=== PATIENT | female | born 1980 | race Caucasian/White ===

== ENCOUNTER 2018-10-22 08:39 | Emergency (ER) | payer SELFPAY ==
[2018-10-22 08:53] VITALS: BP 125/65
--- NOTE | 2018-10-22 10:12 | UC ---
Respiratory Complaint HPI - HPI Summary HPI Summary: She has had URI type symptoms for the last several days. Started with congestion and sneezing. She now has a sore throat and a mildly productive cough. - History of Current Complaint Chief Complaint: UCRespiratory Stated Complaint: FEVER Time Seen by Provider: 10/22/18 08:52 Hx Obtained From: Patient Hx Last Menstrual Period: 10/08/18 Onset/Duration: Gradual Onset Timing: Constant Severity Initially: Moderate Severity Currently: Moderate Pain Intensity: 6 - Allergies/Home Medications Allergies/Adverse Reactions: Allergies Allergy/AdvReac Type Severity Reaction Status Date / Time mupirocin [From Bactroban] Allergy Severe Anaphylatic Verified 10/22/18 08:53 Shock atorvastatin Allergy Muscle Ache Verified 10/22/18 08:53 bee stings Allergy Intermediate Hives Uncoded 10/22/18 08:53 Home Medications: Home Medications Albuterol HFA INHALER* [Ventolin HFA Inhaler*] 2 puff INH Q4H PRN 10/22/18 [ History Confirmed 10/22/18] Loratadine [Claritin] 10 mg PO DAILY 10/22/18 [History Confirmed 10/22/18] guaiFENesin [Mucinex] 1 tab PO DAILY PRN 10/22/18 [History Confirmed 10/22/18] PMH/Surg Hx/FS Hx/Imm Hx Previously Healthy: Yes - Surgical History Surgical History: Yes Surgery Procedure, Year, and Place: 2011 GALL BLADDER SURGERY x2 (HAD TO RERTRIEVE GALL STONES). Tubal Ligation 2008 - Social History Alcohol Use: None Substance Use Type: None Smoking Status (MU): Current Every Day Smoker Type: Cigarettes Amount Used/How Often: 5-8 cigs per day Length of Time of Smoking/Using Tobacco: 15 years Have You Smoked in the Last Year: Yes Household Exposure Type: Cigarettes - Immunization History Most Recent Tetanus Shot: unknown Review of Systems All Other Systems Reviewed And Are Negative: Yes ENT: Positive: Sore Throat, Nasal Discharge Respiratory: Positive: Cough Physical Exam - Summary Physical Exam Summary: She was nontoxic in appearance with stable vital signs. Triage Information Reviewed: Yes Appearance: Well-Appearing Vital Signs: Initial Vital Signs Temp 99.3 F 10/22/18 08:49 Pulse 81 10/22/18 08:49 Resp 18 10/22/18 08:49 BP 125/65 10/22/18 08:49 Pulse Ox 96 10/22/18 08:49 Vital Signs Reviewed: Yes Eyes: Positive: Conjunctiva Clear ENT: Positive: Pharyngeal erythema, Nasal congestion, Nasal drainage, TMs normal. Negative: TM bulging, TM dull, TM red Neck exam: Normal Neck: Positive: No Lymphadenopathy Respiratory Exam: Normal Respiratory: Positive: Lungs clear, Normal breath sounds, No respiratory distress Respiratory Course/Dx - Course Course Of Treatment: RST was negative and this is likely a viral upper respiratory tract infection. I will treat her symptomatically with guaifenesin with codeine - Differential Dx/Diagnosis Provider Diagnosis: URI (upper respiratory infection) Discharge - Sign-Out/Discharge Documenting (check all that apply): Patient Departure All imaging exams completed and their final reports reviewed: No Studies - Discharge Plan Condition: Stable Disposition: HOME Patient Education Materials: Upper Respiratory Infection (ED) Referrals: Arin Burrows INTERNAL CONSULTANT [Primary Care Provider] - - Billing Disposition and Condition Condition: STABLE Disposition: Home
== END 2018-10-22 10:42 | disposition home or self-care (01) ==
LOC: UCEAST 08:39
DX: J06.9 Acute upper respiratory infection, unspecified (principal); F17.210 Nicotine dependence, cigarettes, uncomplicated
CPT/HCPCS: 87651; 99212; G0463